=== PATIENT | male | born 1960 | race Two or more races ===

== ENCOUNTER 2018-10-15 09:41 | Emergency (ER) | payer SELFPAY ==
[~2018-10-15] VITALS: Ht 180.3 cm; Wt 65.3 kg
--- NOTE | 2018-10-15 09:45 | NUR ---
PT BIBRA TO ER BED 13. PER REPORT, PT WAS LYING IN A SIDEWALK IN FRONT OF AN ESTABLISHMENT C/O GENERALIZED WEAKNESS AND DIZZINESS SINCE YESTERDAY. PT DENIES ANY RECENT ALCOHOL AND DRUG USE. PT IS AAOX4. NO NEURO DEFICIT NOTED UPON INITIAL ASSESSMENT. VSS. AWAITING MD SCHRADER.
--- NOTE | 2018-10-15 09:58 | NUR ---
DR DE LA TORRE AT BEDSIDE FOR EVAL.
[2018-10-15] MEDS ORDERED: IV NS 0.9% 1,000 ML BAG IV ONE (10:00)
[2018-10-15] MEDS ORDERED: ONDANSETRON HCL/PF 4 MG/2 ML VIAL IVP ONE (10:00)
[2018-10-15] MEDS ORDERED: MECLIZINE HCL 12.5 MG TABLET PO ONE (10:00)
[2018-10-15 10:08] LABS: BASOPHILS % (AUTO) 0.7 % (0.0-2.0); EOSINOPHILS % (AUTO) 0.1 % (0.0-6.0); HEMATOCRIT 46 % (39-51); HEMOGLOBIN 15.5 g/dL (13.5-17.5); LYMPHOCYTES # (AUTO) 0.7 /CMM (0.8-4.8); LYMPHOCYTES % (AUTO) 9.5 % (20.0-44.0); MEAN CORPUSCULAR HGB CONC 34 g/dl (31.0-36.0); MEAN CORPUSCULAR VOLUME 94 fL (80-96); MONOCYTES # (AUTO) 0.7 /CMM (0.1-1.30); MONOCYTES % (AUTO) 8.8 % (2.0-12.0); NEUTROPHILS # (AUTO) 6.2 /CMM (1.8-8.9); NEUTROPHILS % (AUTO) 80.9 % (43.0-81.0); PLATELET COUNT (AUTO) 186 /CMM (150-450); WHITE BLOOD COUNT (AUTO) 7.6 K/uL (4.3-11.0)
[2018-10-15] MEDS ORDERED: MECLIZINE HCL 25 MG TABLET ONE (10:09)
[2018-10-15] MEDS ORDERED: ONDANSETRON HCL/PF 4 MG/2 ML VIAL ONE (10:09)
[2018-10-15 10:15] LABS: CALCIUM, SERUM 8.8 mg/dL (8.5-10.1); CREATININE 0.9 mg/dL (0.6-1.3); POTASSIUM 3.3 mmol/L (3.5-5.1)
--- NOTE | 2018-10-15 10:15 | NUR ---
STILL UNABLE TO PROVIDE URINE SAMPLE AT THIS TIME. PROVIDED W/ URINAL AT BEDSIDE.
--- NOTE | 2018-10-15 10:20 | NUR ---
PT IS WHEELED TO CT SCAN VIA [facility].
--- NOTE | 2018-10-15 10:35 | NUR ---
PT IS BACK FROM THE CT SCAN. AWAITING RESULT.
--- NOTE | 2018-10-15 12:13 | NUR ---
IV removed. Catheter intact and site benign. Pressure and 4x4 applied to site. No bleeding noted. Patient discharged to home in stable condition. Written and verbal after care instructions given. Patient verbalizes understanding of instruction.
[2018-10-15 12:15] VITALS: BP 138/76
== END 2018-10-15 12:23 | disposition home or self-care (01) ==
LOC: ER 09:43
DX: H81.10 Benign paroxysmal vertigo, unspecified ear (principal); Z86.19 Personal history of other infectious and parasitic diseases; Z60.2 Problems related to living alone
CPT/HCPCS: 36415; 70450; 71045; 80048; 85025; 96361; 96374; 99284; A4606; J2405; J7030; J8597; Z7610

== ENCOUNTER 2021-04-14 09:00 | Emergency (ER) | payer SELFPAY ==
[~2021-04-14] VITALS: Ht 180.3 cm; Wt 88.0 kg
--- NOTE | 2021-04-14 09:09 | NUR ---
BIBRA60 [facility] C/O WEAKNESS. ADMITS TO ETOH USE. PATIENT A/OX4, BREATHING EVEN AND UNLABORED, NO SOB NOTED, ASSISTED TO BED 14.
[2021-04-14] MEDS: IV NS 0.9% 1,000 ML IV ONE (09:25)
[2021-04-14] MEDS ORDERED: ONDANSETRON HCL/PF 4 MG/2 ML VIAL ONE ×2 (09:28→10:19)
[2021-04-14] MEDS ORDERED: THIAMINE HCL 100 MG TABLET ONE (09:28)
[2021-04-14] MEDS ORDERED: FOLIC ACID 1 MG TABLET ONE (09:28)
[2021-04-14] MEDS: ONDANSETRON HCL/PF 4 MG/2 ML VIAL IV ONE ×2 (09:47→10:24)
[2021-04-14] MEDS: THIAMINE HCL 100 MG TABLET PO ONE (09:47)
[2021-04-14] MEDS: FOLIC ACID 1 MG TABLET PO ONE (09:47)
[2021-04-14] MEDS ORDERED: ONDA4TAB5 PO (10:45)
[2021-04-14] MEDS ORDERED: FAMO-131 PO (10:45)
--- NOTE | 2021-04-14 10:55 | NUR ---
"C[employer] Up consult: nutritional services cook consult requested for homelessness and substance use. Patient is a 60-year-old, male. SW met with patient at his bedside in the emergency department. Patient presented calm and was resting. Patient appeared well-groomed. Patient was alert and oriented x4. Per chart, patient was brought in by ambulance on 04/14/[address] with complaints of weakness and admitted to ETOH use. Patient stated that he is currently homeless and recently came to [place] from [place] where he was at a sober living facility. Patient stated that his current source of income are food stamps and [employer]. Patient reported that he was at the sober living facility for the last 15 months. Patient stated that he came to [place] to visit his brother. SW asked patient about his history of substance use and patient reported daily alcohol use and stated, I had a drink last night and Vanessa been going hard for the last four to five days. Patient reported drinking a gallon of beer per day. Patient denied drug use. Patient denied history of mental illness. Patient denied current suicidal or homicidal ideation. SW offered patient homeless and substance use resources. Patient accepted the resources and thanked SW. Patient signed the homeless waiver and SW filed waiver in the patients chart. SW discussed discharge plans with the patient and patient stated that he will return to his prior living arrangement on the streets. Patient stated that he can use public transportation. PLAN: Patient plans to return to his prior living arrangement on the streets. No further SS intervention at this time, however, SW will remain available as needed. RESOURCES: Year-round shelters: [facility] [address] [address] ; [facility] [address] [place] [address]; [facility] [address]rn[address] [facility] [address] SPA 4 | [facility] [place] Provider: First [facility] Serve Address: [address], [address] # of Beds: 48 Population Served: [facility] Provider: First to Serve Address: [address] [facility], [address] # of Beds: 73 Population Served: [facility] 6 | [facility] Provider: Home at Last Address: [address] [facility], [address] # of Beds: 63 Population Served: [facility] 3 | [facility] Provider: [facility] [place] Address: [address] [facility], [address] # of Beds: 75 Population Served: [facility] 8 | [facility] Provider: [facility] [place] Address: [address] [facility], [address] # of Beds: 80 Population Served: [facility] 1 | [facility] Provider: [facility] [place] Address: [address] [place] [address], [address] # of Beds: 85 Population Served: [facility] 2 | [facility] Provider: Bethany [facility] [place] Address: Confidential (please call for location) # of Beds: 52 Population Served: [facility] [place] 4 | [facility] Provider: [facility] Address: [address] [facility], [address] # of Beds: 49 Population Served: [facility] Provider: First To Serve Address: [address] [place] [address], [address] # of Beds: 27 Population Served: [facility] Hygiene: [facility]: [address] [address] [place] ; [facility] [facility] [address] [facility] ; [facility] [address] . Food Resources: [place] [facility]- [address] [facility]; Meet Each Need with Dignity ([facility]) [address] [facility]; [facility] [address] [facility]; [facility] [address] [place] howie Russ. Mental Health resources provided: [facility] [address] [place], [place] [address] ; [facility] [address] [facility] [address], [place], [place] [phone] ; [facility] [address] [facility] [place], [place] [id number] ; [facility] [address] [place], [place] [address] Healthcare Clinics: [facility] [address] [facility], [address] [place]. [place] ; [facility] [address] [facility] [address] [place] [address]; [facility] [address] [place]. [place] [phone] Counseling--[facility] [address] [facility], [address] [place], [place] [id number] (Specializes in in-depth psychotherapy for emotional distress: anxiety, depression, interpersonal conflicts, life transitions, childhood abuse) PSYCHIATRIC OUTPATIENT SERVICES [facility] Partial Hospitalization and Intensive Outpatient Program (Managed Care and [place] Only) [address] [facility] [address] [facility] Partial Hospitalization and Outpatient Program [address] [facility]. [address] [place], [place] [id number] [facility] Partial Hospitalization and Outpatient Program [address] [facility] [place], [place] [id number] [facility] [place] [facility] [address] [facility]. [address] [place], [place] [address] [facility] Partial Hospitalization and Outpatient Program [address] [place], [place] [phone] Substance use resources provided included: [facility] Substance Abuse Self-Helpline (SAS) ; [facility] [address] [facility] [place] [address] ; [facility] [address] [facility] [address] ; [facility] [address] [facility] [address] [facility] [address] [facility] [address] ; [facility] [address] [facility] [phone] ; [facility]; [facility] [place]; [facility]; Alcoholics Anonymous -[facility]"
[2021-04-14] MEDS ORDERED: MAG HYDROX/AL HYDROX/SIMETH 30 ML UDC ONE (10:58)
[2021-04-14] MEDS ORDERED: LIDOCAINE VISCOUS 2% UD 15 ML UDC ONE (10:58)
[2021-04-14] MEDS: MAG HYDROX/AL HYDROX/SIMETH 30 ML UDC PO ONE (10:59)
[2021-04-14] MEDS: LIDOCAINE VISCOUS 2% UD 15 ML UDC MM ONE (10:59)
[2021-04-14] MEDS: FAMOTIDINE/PF INJ 20 MG/2 ML VIAL IV ONE (10:59)
[2021-04-14] MEDS ORDERED: FAMOTIDINE/PF INJ 20 MG/2 ML VIAL IV ONE (10:59)
--- NOTE | 2021-04-14 12:06 | NUR ---
PATIENT A/OX4, AMBULATORYW ITH STEADY GAIT. NO DISTRESS NOTED, BREATHING EVEN AND UNLABORED. DENIES N/V. IV removed. Catheter intact and site benign. Pressure and 4x4 applied to site. No bleeding noted.Patient discharged to home in stable condition. Written and verbal after care instructions given. Patient verbalizes understanding of instruction.
[2021-04-14 12:08] VITALS: BP 135/80
== END 2021-04-14 12:08 | disposition home or self-care (01) ==
LOC: ER 09:04
DX: K29.20 Alcoholic gastritis without bleeding (principal); F10.10 Alcohol abuse, uncomplicated; E86.0 Dehydration; Z60.2 Problems related to living alone; Y90.9 Presence of alcohol in blood, level not specified
CPT/HCPCS: 96361; 96374; 96375; 96376; 99284; J2405 ×2; J3490; J7030